=== PATIENT | female | born 1965 | race Caucasian/White ===

== ENCOUNTER 2024-09-02 16:11 | Emergency (ER) | payer OTHER ==
--- OUTSIDE RECORDS SUMMARY | 2024-09-02 16:15 | XMS REPORT | Continuity of Care Document ---
Author Name Unknown Address [address] [facility] [address] [place] [address] [facility] Address [address] [facility] [address] [place] [address] Care Team Providers Care Real Estate Director Name Role Phone Lázaro Wetzel MD Primary Care Physician Fifi Bailey Attending Clinician Unavailable JENNIFER BURNS Attending Clinician Unavailab RANDA Perez Attending Clinician Unavailabl Mildred Echeverria APRN-MANDO Attending Clinician Nanette MELINDA Pearson Attending Clinician Unavailable [id number] Attending Clinician Unavailable ARIEL_GCBZW_Dino_S Attending Clinician UnavailVALENTINE Morgan Attending Clinician Unava ilable Barak Attending Clinician Unavailab le [id number] Attending Clinician Unavailable [id number] Attending Clinician Unavailable JAY JAY PLEITEZ Attending Clinician Unavailabl e Doctor Unassigned, Irene Attending Clinician U navailable FARHAT ZAMARRIPA Attending Clinician Unavailable Farhat Zamarripa MD Attending Clinician Lab, Adc Fam Pob I Attending Clinician Unavailab Bhatia SOFT SUGAR SUPERVISOR, Zoey Attending Clinician [phone] ZOEY ATWOOD Attending Clinician Unavailable Mildred Rodarte Admitting Clinician Nanette vailable ARIEL_GCBZW_Dino_Sae Admitting Clinician Unavaila lamin SCHUMACHER_Allen_Marcela_ Admitting Clinician Unavailab FARHAT Zheng Admitting Clinician Unavailable Payers Payer Name Policy Type Policy Number Effective Date Expirati on Date Source [employer]/PPO 2 [id number] 00:00:00 [employer] - [employer]ET[employer] (POS II) [id number] 2022 00:00:00 [employer] [place] OUT [place] [id number] 2018 00:00:00 Problems Condition Name Condition Details Condition Category Status Onset Date Resolution Date Last Treatment Date Treating Clinician Comments Source Elevated partial thrombopla stin time (PTT) Elevated partial thrombopla stin time (PTT) Disease Active 8-26 00:00: 00 Tasha watts Atrophy of vagina Atrophy of Vagina Problem Active - 00:00: 00 [facility] 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 Disease Active -16 00:00: 00 Tasha watts Encounter for screening mammogram for breast cancer Encounter for screening mammogram for breast cancer Disease Active 10-12 00:00: 00 Tasha watts Class 1 obesity due to excess calories without serious comorbidit y with body mass index (BMI) of 32.0 to 32.9 in adult Class 1 obesity due to excess calories without serious comorbidit y with body mass index (BMI) of 32.0 to 32.9 in adult Disease Active 10-12 00:00: 00 Tasha watts Osteopenia Osteopenia Disease Active 2024-0 6-17 00:00: 00 Tasha Jcybold - Externa l Fatigue Fatigue Disease Active 617 00:00: 00 Tasha Pazold - Externa l Clostridiu m difficile diarrhea Clostridiu m difficile diarrhea Disease Active 17 00:00: 00 Tasha Pazold - Externa l Herpes simplex Herpes Simplex Problem Active 08-12 00:00: 00 [facility] Disorder of bone Disorder of Bone Problem Active 10-18 00:00: 00 [facility] Screening mammograph y Screening Mammograph y Problem Active 10-18 00:00: 00 [facility] Screening for malignant neoplasm of colon Screening for Malignant Neoplasm of Colon Problem Active 10-18 00:00: 00 [facility] 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 Lumbosacra l Spondylosi s with Radiculopa thy Problem Active 2019-04 00:00: 00 [facility] Urgent desire to urinate Urgent Desire to Urinate Problem Active 08-11 00:00: 00 [facility] Gynecologi danae examinatio n abnormal Gynecologi danae Examinatio n Abnormal Problem Active 16 00:00: 00 [facility] Herpesviru s infection Herpesviru s Infection Problem Active 16 00:00: 00 [facility] Atrophic vaginitis Atrophic Vaginitis Problem Active 16 00:00: 00 [facility] 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 2015-04 00:00: 00 [facility] Disorder of connective tissue Disorder of Connective Tissue Problem Active 2015-04 0 00:00: 00 [facility] [id number] Positive NELLA (antinucle ar antibody) Problem [facility] Mixed anxiety and depressive disorder Depression with anxiety Problem [facility] Lymphadeno suman Lymphadeno suman Problem [facility] Obesity Obesity Problem [facility] Snoring Snoring Problem [facility] Seasonal allergic rhinitis Seasonal allergic rhinitis Problem [facility] Myalgia Myalgia Problem [facility] Menopausal and postmenopa usal disorders Menopausal and postmenopa usal disorder Problem [facility] [id number] Primary osteoarthr itis of first carpometac arpal joint of left hand Problem [facility] Prediabete s Pre-diabet es Problem [facility] [id number] Pain, joint, hand, left Problem [facility] Hyperlipid emia Hyperlipid emia Problem [facility] [id number] Common cold virus Problem [facility] [id number] Herpes simplex vulvovagin itis Problem [facility] [id number] Rheumatoid arthritis involving multiple sites, unspecifie d rheumatoid factor presence Problem [facility] [id number] Hypogammag lobulinemi a Problem [facility] [id number] Pure hyperchole sterolemia Problem [facility] No known active problems No known active problems Disease Tasha Tobias Allergies, Adverse Reactions, Alerts Allergy Name Allergy Type Status Severity Reaction(s) Onset Date Inactive Date Treating Clinician Comments Source Sulfa Drugs Propensi ty to adverse reaction s Active Hives 05-16 00:00: 00 Tasha Tobias SULFA (SULFONA MIDE ANTIBIOT ICS) Drug Class Active Med Hives 05-16 00:00: 00 [facility] Sulfa (Sulfona mide Antibiot ics) Propensi ty to adverse reaction s Active Hives 05-16 00:00: 00 [facility] Sulfa (Sulfona mide Antibiot ics) Propensi ty to adverse reaction s Active Hives 05-16 00:00: 00 [facility] Meloxica m Propensi ty to adverse reaction s Active Itching 09-01 00:00: 00 Tasha Tobias - Externa l Meloxica m Propensi ty to adverse reaction s Active Itching 09-01 00:00: 00 Tasha Tobias SULFUR SOAP Allergy to substanc e Active Hives [facility] 0 Drug allergy Active hives [facility] NO KNOWN ALLERGIE S Drug Class Active [facility] Social History Social Habit Start Date Stop Date Quantity Comments Source Exposure to SARS-CoV-2 (event) Not sure [facility] Sex Assigned At [facility] ASSERTION Not Tasha Tobias - External Sexual orientation Gia akhtar Jatinder - External History of Social function 2022-07-17 00:00:00 2022-07-17 00:00:00 Tasha Tobias - External Sex 2021-08-01 13:15:37 2021-08-01 13:15:37 Female (finding) Tasha Tobias - External History of tobacco use 2016-04-28 00:00:00 Cigarette Smoker Tasha Tobias - External Smoking Status Start Date Stop Date Source Never Smoker [facility] Tobacco smoking consumption unknown [facility] Ex-smoker 2023-09-12 00:00:00 2023-09-12 00:00:00 Tasha Tobias - External Medications Ordered Medication Name Filled Medication Name Start Date Stop Date Current Medication? Ordering Clinician Indication Dosage Frequency Signature (SIG) Comments Components Source Cyanocobala min (Vitamin B-12) 100 MCG oral Tablet 08-18 09:01: 19 08-18 00:00 :00 No 100ug QD Take 1 tablet (100 mcg total) by mouth daily. Tasha watts Benzonatate (Tessalon Perles) 100 MG oral Capsule 08-18 00:00: 00 Yes [id number] 100mg Q.[id number] 3D Take 1 capsule (100 mg total) by mouth 3 times daily as needed for cough. Tasha watts Azithromyci n 250 MG oral Tablet 08-18 00:00: 00 08-24 04:59 :00 Yes [id number] Take 2 tablets by mouth on day 1 then 1 tablet by mouth daily for 4 days thereafter .. Tasha watts Paroxetine HCl 10 MG oral Tablet 2023-04 00:00: 08-18 00:00 :00 No [id number] 10mg Take 1 tablet (10 mg total) by mouth every morning. Tasha watts Paroxetine HCl 10 MG oral Tablet 12-15 00:00: 00 Yes [id number] 10mg Take 1 tablet (10 mg total) by mouth every morning. Tasha watts Probiotic Product (PROBIOTIC- 10 OR) 11-10 08:57: 46 Yes Probiotic Tasha Jatinder Montalvo l Cyanocobala min (Vitamin B-12) 100 MCG oral Tablet 11-10 08:57: 46 Yes 100ug QD Take 1 tablet (100 mcg total) by mouth daily. Tasha watts Valacyclovi r HCl 500 MG oral Tablet 11-10 08:57: 46 Yes 500mg Q.5D Take 1 tablet (500 mg total) by mouth 2 times daily. Tasha watts Probiotic Product (PROBIOTIC- 10 OR) 10-12 08:52: 59 Yes Probiotic Tasha Jatinder watts Cyanocobala min (Vitamin B-12) 100 MCG oral Tablet 10-12 08:52: 59 Yes 100ug Take 1 tablet (100 mcg total) by mouth daily. Tasha watts Valacyclovi r HCl 500 MG oral Tablet 10-12 08:52: 59 Yes 500mg Take 1 tablet (500 mg total) by mouth 2 times daily. Tasha watts Paroxetine HCl 10 MG oral Tablet 10-12 00:00: 00 Yes [id number] 10mg Take 1 tablet (10 mg total) by mouth every morning. Tasha watts Valacyclovi r HCl 500 MG oral Tablet 09-11 08:05: 46 Yes 500mg Take 1 tablet (500 mg total) by mouth 2 times daily. Tasha watts Loperamide HCl (IMODIUM A-D) 2 MG oral Tablet 09-11 00:00: 00 Yes [id number] 02 2mg Q.25D Take 1 tablet (2 mg total) by mouth 4 times daily as needed for diarrhea. Tasha watts Paroxetine HCl 20 MG oral Tablet 09-11 00:00: 00 10-12 00:00 :00 No [id number] 20mg Take 1 tablet (20 mg total) by mouth every morning. Tasha watts Cholecalcif erendira (D3) 25 MCG (1000 UT) oral Capsule 2022-04 00:00: 00 Yes Tasha watts Red Yeast Rice 600 MG oral Tablet 07-17 13:04: 12 07-17 00:00 :00 No by other route Tasha watts Hydroxychlo roquine Sulfate 200 MG oral Tablet 07-17 13:04: 06 07-17 00:00 :00 No 1{tbl} Take 1 tablet by mouth in the morning and 1 tablet in the evening. Tasha watts Fexofenadin e (FABRICE) 180 MG oral Tablet 07-17 13:03: 56 07-17 00:00 :00 No Tasha watts Bupropion HCL XL 300 MG OR TB24 07-17 13:03: 44 07-17 00:00 :00 No 1{tbl} 1 tablet by other route every 24 hours Tasha watts Acyclovir 800 MG oral Tablet 07-17 13:03: 32 07-17 00:00 :00 No 1{tbl} 1 tablet by other route Tasha watts Cyanocobala min (Vitamin B-12) 100 MCG oral Tablet 07-17 09:34: 31 Yes 100ug Take 1 tablet (100 mcg total) by mouth daily. Tasha watts Loratadine (CLARITIN) 10 MG oral tablet 07-17 09:34: 17 Yes 1{tbl} Take 1 tablet by mouth Tasha watts Probiotic Product (PROBIOTIC- 10 OR) 07-17 09:34: 17 Yes Probiotic Tasha watts Biotin 5 MG oral Capsule 07-17 09:34: 17 09-11 00:00 :00 No biotin 5 mg capsule Tasha watts Probiotic Product (PROBIOTIC- 10 OR) 07-17 09:34: 10 07-17 00:00 :00 No Probiotic Tasha Jatinder Carlosa mac Azelastine & Fluticasone 137 & 50 MCG/ACT nasal Therapy Pack 07-17 00:00: 00 Yes [id number] 1{spray } Q.5D 1 spray by nasal route 2 times daily Tasha Carlosa mac Azelastine & Fluticasone 137 & 50 MCG/ACT nasal Therapy Pack 07-17 00:00: 00 Yes [id number] 1{spray } 1 spray by nasal route 2 times daily Tasha Carlosa mac Mobic 7.5 MG Mobic 7.5 MG 2021-04 0-03 00:00: 00 02-27 00:00 :00 No 1{table t} QD Mobic 7.5 MG Mobic 7.5 MG Mobic 7.5 MG 2021-04 0-03 00:00: 00 02-27 00:00 :00 No 1{table t} QD Mobic 7.5 MG Mobic 7.5 MG Mobic 7.5 MG 9- 00:00: 00 02-24 00:00 :00 No 1{table t} QD Mobic 7.5 MG Mobic 7.5 MG Mobic 7.5 MG 9- 00:00: 00 02-24 00:00 :00 No 1{table t} QD Mobic 7.5 MG Mobic 7.5 MG Mobic 7.5 MG 9-30 00:00: 00 02-24 00:00 :00 No 1{table t} QD Mobic 7.5 MG Azithromyci n 250 MG oral Tablet 6-16 00:00: 00 07-17 00:00 :00 No [id number] Take 2 tablets by mouth on day 1 then 1 tablet by mouth daily for 4 days thereafter . Tasha watts Fexofenadin e (FABRICE) 180 MG oral Tablet 08-03 09:11: 20 Yes Tasha Tobias Loratadine (CLARITIN) 10 MG oral tablet 08-03 09:11: 20 09-11 00:00 :00 No 1{tbl} Take 1 tablet by mouth Tasha Tobias - Externa l iopamidol (ISOVUE 370-500 mL) injection 100 mL 05-16 13:30: 00 05-16 12:27 :00 No [id number] 100mL 100 mL, Intravenou s, ONCE, 1 dose, On Fri05/16/21 at 0730, Routine [facility] No known medications 05-16 04:38: 57 No [facility] Claritin Claritin Yes Fifi Lea 1 tablet [facility] Red Yeast Rice Red Yeast Rice Yes Fifi Lea as directed [facility] Hydroxychlo roquine Sulfate Hydroxychlo roquine Sulfate Yes Fifi Lea TK 1 T PO BID [facility] Acyclovir Acyclovir Yes Fifi Lea 1 tablet [facility] Valacyclovi r HCl Valacyclovi r HCl Yes Fifi Lea TK 1 T PO QD [facility] Claritin 10 MG Claritin 10 MG No 1{table t} QD Claritin 10 MG Probiotic Probiotic No Probiotic Allergy Relief (diphenhydr amine) 25 mg capsule 1 capsule at bedtime as needed; Once a day; 30 day(s) Allergy Relief (diphenhydr amine) 25 mg capsule 1 capsule at bedtime as needed; Once a day; 30 day(s) No Allergy Relief (diphenhyd ramine) 25 mg capsule 1 capsule at bedtime as needed; Once a day; 30 day(s) [facility] Claritin 10 MG Claritin 10 MG No 1{table t} QD Claritin 10 MG Multivitami n Multivitami n No Multivitam in Hydroxychlo roquine Sulfate 200 MG Hydroxychlo roquine Sulfate 200 MG No Hydroxychl oroquine Sulfate 200 MG azelastine 137 mcg (0.1 %) nasal spray SPRAY 1 SPRAY IN EACH NOSTRIL DAILY azelastine 137 mcg (0.1 %) nasal spray SPRAY 1 SPRAY IN EACH NOSTRIL DAILY No azelastine 137 mcg (0.1 %) nasal spray SPRAY 1 SPRAY IN EACH NOSTRIL DAILY [facility] Claritin 10 MG Claritin 10 MG No 1{table t} QD Claritin 10 MG Hydroxychlo roquine Sulfate 200 MG Hydroxychlo roquine Sulfate 200 MG No Hydroxychl oroquine Sulfate 200 MG Probiotic Probiotic No Probiotic estradiol 0.01% (0.1 mg/gram) vaginal cream Insert 0.5 g 3 times a week by vaginal route at bedtime for 90 days. estradiol 0.01% (0.1 mg/gram) vaginal cream Insert 0.5 g 3 times a week by vaginal route at bedtime for 90 days. No .5g Q56H estradiol 0.01% (0.1 mg/gram) vaginal cream Insert 0.5 g 3 times a week by vaginal route at bedtime for 90 days. [facility] loperamide 2 mg capsule TAKE ONE CAPSULE BY MOUTH FOUR TIMES DAILY NEEDED FOR DIARRHEA loperamide 2 mg capsule TAKE ONE CAPSULE BY MOUTH FOUR TIMES DAILY NEEDED FOR DIARRHEA No loperamide 2 mg capsule TAKE ONE CAPSULE BY MOUTH FOUR TIMES DAILY NEEDED FOR DIARRHEA [facility] Probiotic Probiotic No Probiotic [facility] valacyclovi r 500 mg tablet TAKE 1 TABLET BY MOUTH TWICE DAILY FOR 5 DAYS valacyclovi r 500 mg tablet TAKE 1 TABLET BY MOUTH TWICE DAILY FOR 5 DAYS No valacyclov ir 500 mg tablet TAKE 1 TABLET BY MOUTH TWICE DAILY FOR 5 DAYS [facility] Vitamin D3 Vitamin D3 No Vitamin D3 [facility] amoxicillin 875 mg tablet TAKE 1 TABLET BY MOUTH TWICE DAILY amoxicillin 875 mg tablet TAKE 1 TABLET BY MOUTH TWICE DAILY No amoxicilli n 875 mg tablet TAKE 1 TABLET BY MOUTH TWICE DAILY [facility] Duexis 800 mg-26.6 mg tablet Duexis 800 mg-26.6 mg tablet No Duexis 800 mg-26.6 mg tablet [facility] hydroxychlo roquine 200 mg tablet Take 1 tablet twice a day by oral route for 90 days. hydroxychlo roquine 200 mg tablet Take 1 tablet twice a day by oral route for 90 days. No 1 BID hydroxychl oroquine 200 mg tablet Take 1 tablet twice a day by oral route for 90 days. [facility] oseltamivir 75 mg capsule TAKE 1 CAPSULE BY MOUTH EVERY MORNING AND 1 CAPSULE EVERY EVENING FOR 5 DAYS oseltamivir 75 mg capsule TAKE 1 CAPSULE BY MOUTH EVERY MORNING AND 1 CAPSULE EVERY EVENING FOR 5 DAYS No oseltamivi r 75 mg capsule TAKE 1 CAPSULE BY MOUTH EVERY MORNING AND 1 CAPSULE EVERY EVENING FOR 5 DAYS [facility] valacyclovi r 500 mg tablet valacyclovi r 500 mg tablet No valacyclov ir 500 mg tablet [facility] Immunizations Ordered Immunization Name Filled Immunization Name Date Status Comments Source Influenza Virus Vaccine, age 6 months and up 2022-01-28 00:00:00 Completed [facility] Koch SARS-COV-2 COVID-19 PFIZER VACCINE 2020-08-05 00:00:00 Completed [facility] SARS-COV-2 COVID-19 PFIZER VACCINE 2020-07-15 00:00:00 Completed [facility] Flucelvax - multidose vial Flucelvax - multidose vial 2018-02-10 10:17:00 Completed [facility] [place] Flucelvax - multidose vial Flucelvax - multidose vial 2018-02-10 10:17:00 Completed [facility] Flucelvax - multidose vial Flucelvax - multidose vial 2018-02-10 10:17:00 Completed [facility] Flucelvax - multidose vial Flucelvax - multidose vial 2018-02-10 00:00:00 Completed [facility] Influenza, Injectable, Mdck, Quadrivalent With Preservatie 2018-02-10 00:00:00 Completed Tasha Tobias Influenza, Injectable, Mdck, Quadrivalent With Preservatie 2018-02-10 00:00:00 Miles Koch SARS-COV-2 COVID-19 PFIZER VACCINE Unknown Completed [facility] Influenza, Injectable, Mdck, Quadrivalent With Preservative Unknown Completed Tasha Koch Influenza Virus Vaccine, age 6 months and up Unknown Completed Tasha Koch Influenza, Injectable, Mdck, Quadrivalent With Preservative Unknown Completed Tasha Koch Influenza Virus Vaccine, age 6 months and up Unknown Completed Tasha Seybold - External Influenza, Injectable, Mdck, Quadrivalent With Preservative Unknown Completed Tasha Seybold - External Influenza Virus Vaccine, age 6 months and up Unknown Completed Tasha Seybold - External Influenza, Injectable, Mdck, Quadrivalent With Preservative Unknown Completed Tasha Jcybold - External Influenza Virus Vaccine, age 6 months and up Unknown Completed Tasha Jcybold - External FLUCELVAX TRIVALENT PF Unknown Completed Tasha Seybold - External Influenza, Injectable, Mdck, Quadrivalent With Preservative Unknown Completed Tasha Jcybold - External Influenza Virus Vaccine, age 6 months and up Unknown Completed Tasha Seybold - External Vital Signs Vital Name Observation Time Observation Value Comments S ource Systolic blood pressure 2024-08-18 14:00:00 112 mm[Hg] Tasha Seybo ld - External Diastolic blood pressure 2024-08-18 14:00:00 76 mm[Hg] Tasha Jcybo ld - External Heart rate 2024-08-18 14:00:00 70 /min Isidro y Seybold - External Body temperature 2024-08-18 14:00:00 36.56 Jaimee Tasha Jcybold - External Respiratory rate 2024-08-18 14:00:00 20 /min Tasha Jcybold - External Body height 2024-08-18 14:00:00 157.5 cm Paula mcallister Seybold - External Body weight 2024-08-18 14:00:00 77.565 kg Paula ey Seybold - External BMI 2024-08-18 14:00:00 31.28 kg/m2 Paula mcallister Seybold - External Oxygen saturation in Arterial blood by Pulse oximetry 2024-08-18 14:00:00 98 /min Tasha Pazo ld - External BMI (Body Mass Index) 2023-11-14 00:00:00 31.3 kg/m2 [facility] Body Weight 2023-11-14 00:00:00 171.2 [lb_av] [facility] BP Systolic 2023-11-14 00:00:00 124 mm[Hg] [facility] BP Diastolic 2023-11-14 00:00:00 76 mm[Hg] [facility] Height 2023-11-14 00:00:00 62 [in_i] [facility] Systolic blood pressure 2023-11-11 13:51:00 118 mm[Hg] Tasha Seybo ld - External Diastolic blood pressure 2023-11-11 13:51:00 74 mm[Hg] Tasha Seybo ld - External Heart rate 2023-11-11 13:51:00 74 /min Kelse y Seybold - External Body temperature 2023-11-11 13:51:00 36.67 Jaimee Tasha Seybold - External Respiratory rate 2023-11-11 13:51:00 18 /min Tasha Seybold - External Body height 2023-11-11 13:51:00 157.5 cm Paula ey Seybold - External Body weight 2023-11-11 13:51:00 77.622 kg Paula ey Seybold - External BMI 2023-11-11 13:51:00 31.30 kg/m2 Paula ey Seybold - External Oxygen saturation in Arterial blood by Pulse oximetry 2023-11-11 13:51:00 97 /min Tasha Seybo ld - External Systolic blood pressure 2023-10-13 13:47:00 116 mm[Hg] Tasha Seybo ld - External Diastolic blood pressure 2023-10-13 13:47:00 72 mm[Hg] Tasha Seybo ld - External Heart rate 2023-10-13 13:47:00 69 /min Kelse y Seybold - External Body temperature 2023-10-13 13:47:00 36.56 Jaimee Tasha Seybold - External Respiratory rate 2023-10-13 13:47:00 18 /min Tasha Seybold - External Body height 2023-10-13 13:47:00 157.5 cm Paula ey Seybold - External Body weight 2023-10-13 13:47:00 81.194 kg Paula ey Seybold - External BMI 2023-10-13 13:47:00 32.74 kg/m2 Paula ey Seybold - External Oxygen saturation in Arterial blood by Pulse oximetry 2023-10-13 13:47:00 97 /min Tasha Seybo ld - External Systolic blood pressure 2023-09-12 12:56:00 124 mm[Hg] Tasha Seybo ld - External Diastolic blood pressure 2023-09-12 12:56:00 78 mm[Hg] Tasha Jcybo ld - External Heart rate 2023-09-12 12:56:00 78 /min Kelse y Seybold - External Body temperature 2023-09-12 12:56:00 36.5 Jaimee Tasha Seybold - External Respiratory rate 2023-09-12 12:56:00 18 /min Tasha Seybold - External Body height 2023-09-12 12:56:00 157.5 cm Paula ey Seybold - External Body weight 2023-09-12 12:56:00 79.946 kg Paula ey Seybold - External BMI 2023-09-12 12:56:00 32.24 kg/m2 Paula ey Seybold - External Oxygen saturation in Arterial blood by Pulse oximetry 2023-09-12 12:56:00 98 /min Tasha Jcybo ld - External Systolic blood pressure 2022-07-17 14:28:00 116 mm[Hg] Tasha Seybo ld - External Diastolic blood pressure 2022-07-17 14:28:00 64 mm[Hg] Tasha Seybo ld - External Heart rate 2022-07-17 14:28:00 84 /min Kelse y Seybold - External Body temperature 2022-07-17 14:28:00 36.28 Jaimee Tasha Seybold - External Respiratory rate 2022-07-17 14:28:00 14 /min Tasha Jcybold - External Body height 2022-07-17 14:28:00 157.5 cm Paula ey Seybold - External Body weight 2022-07-17 14:28:00 75.297 kg Paula ey Seybold - External BMI 2022-07-17 14:28:00 30.36 kg/m2 Paula ey Seybold - External BP Diastolic 2022-03-08 00:00:00 91 mm[Hg] [facility] Height 2022-03-08 00:00:00 62 [in_i] Harjeet huynh [facility] BMI (Body Mass Index) 2022-03-08 00:00:00 29.1 kg/m2 [facility] BP Systolic 2022-03-08 00:00:00 141 mm[Hg] German claire [facility] Body Weight 2022-03-08 00:00:00 159.2 [lb_av] Darwin lopez [facility] height 2022-01-25 10:00:00 62 [in_i] Commo n [facility] weight 2022-01-25 10:00:00 157.0 [lb_av] Co mmon [facility] temperature 2022-01-25 10:00:00 96.3 [degF] Com mon [facility] bmi 2022-01-25 10:00:00 28.71 kg/m2 Comm on [facility] blood pressure systolic 2022-01-25 10:00:00 134 mm[Hg] Common [facility] blood pressure diastolic 2022-01-25 10:00:00 80 mm[Hg] Common [facility] Systolic blood pressure 2021-08-03 14:03:00 122 mm[Hg] Tasha Seybo ld Diastolic blood pressure 2021-08-03 14:03:00 76 mm[Hg] Tasha Seybo ld Heart rate 2021-08-03 14:03:00 73 /min Kel y Jatinder Body temperature 2021-08-03 14:03:00 36.5 Jaimee Tasha Seybold Respiratory rate 2021-08-03 14:03:00 14 /min Tasha Pazold Body height 2021-08-03 14:03:00 157.5 cm Paula Tobias Body weight 2021-08-03 14:03:00 73.936 kg Paula esvin Jcybold BMI 2021-08-03 14:03:00 29.81 kg/m2 Paula mcallister Seybold Systolic blood pressure 2021-05-16 13:00:00 128 mm[Hg] [facility] Diastolic blood pressure 2021-05-16 13:00:00 73 mm[Hg] [facility] Heart rate 2021-05-16 13:00:00 69 /min [facility] Respiratory rate 2021-05-16 13:00:00 15 /min [facility] Oxygen saturation in Arterial blood by Pulse oximetry 2021-05-16 13:00:00 100 /min [facility] Body temperature 2021-05-16 10:28:00 36.5 Jaimee [facility] Body height 2021-05-16 10:28:00 157.5 cm [facility] Body weight 2021-05-16 10:28:00 73.936 kg [facility] BMI 2021-05-16 10:28:00 29.81 kg/m2 [facility] Procedures Procedure Date / Time Performed Performing Clinician Source MAMMO, screening, digital, bilateral 2023-11-14 00:00:00 [facility] EKG-12 LEAD 2021-05-16 12:55:12 Farhat Zamarripa [facility] CT CHEST PULMONARY ANGIOGRAM 2021-05-16 12:28:07 Farhat Zamarripa [facility] D-DIMER 2021-05-16 11:11:00 Farhat Zamarripa [facility] LIPASE 2021-05-16 10:39:00 Farhat Zamarripa [facility] MAGNESIUM 2021-05-16 10:39:00 Farhat Zamarripa [facility] TROPONIN I 2021-05-16 10:39:00 Farhat Zamarripa [facility] THYROID STIMULATING HORMONE 2021-05-16 10:39:00 Farhat Zamarripa [facility] COMP. METABOLIC PANEL ([id number]) 2021-05-16 10:39:00 Farhat Zamarripa [facility] CBC WITH DIFF 2021-05-16 10:39:00 [facility]hat [facility] 2021-05-16 10:39:00 Farhat Zamarripa [facility] COVID-19 (ID NOW RAPID TESTING) 2021-05-16 10:39:00 Farhat Zamarripa [facility] NOTICE OF PRIVACY PRACTICES 2021-05-16 10:21:25 Doctor Unassigned, Irene [facility] CONSENT/REFUSAL FOR DIAGNOSIS AND TREATMENT 2021-05-16 10:20:43 Doctor Unassigned, Irene [facility] Endometrial Ablation 2008-04-28 00:00:00 [facility] 1984-01-27 00:00:00 [facility] Planned Activity Planned Date Details Comments Source Diagnostic Test Pending 2022-03-08 00:00:00 erythrocyte sedimentation rate by westergren method [code = erythrocyte sedimentation rate by westergren method] [facility] Diagnostic Test Pending 2022-03-08 00:00:00 C-reactive protein, quantitative [code = C-reactive protein, quantitative] [facility] Diagnostic Test Pending 2022-03-08 00:00:00 NELLA (antinuclear antibodies) panel, serum [code = NELLA (antinuclear antibodies) panel, serum] [facility] Diagnostic Test Pending 2022-03-08 00:00:00 CBC [code = CBC] [facility] Diagnostic Test Pending 2022-03-08 00:00:00 CMP, serum or plasma [code = CMP, serum or plasma] [facility] Encounters Start Date/Time End Date/Time Encounter Type Admission Type Attending [facility] Care Facility Care Department Encounter ID Source 2022-01-28 13:54:00 [facility] [id number] [facility] [place] 2022-01-25 09:59:00 Outpatient LeaFifi childs [facility] [id number] [facility] [place] 2022-01-21 10:08:00 Outpatient LeoFifi [facility] [id number] [facility] [place] 2021-05-23 11:13:56 [facility] [id number] [facility] [place] 2024-10-13 08:00:00 2024-10-13 08:00:00 Outpatient JENNIFER BURNS [id number] Tasha Tobias 2024-08-18 09:00:00 2024-08-18 09:00:00 Outpatient JENNIFER BURNS [id number] Tasha Pazold 2024-07-26 00:00:00 2024-07-26 00:00:00 Outpatient JENNIFER BURNS TASHA [id number] Tasha [facility] 2024-04-07 13:45:00 2024-04-07 13:45:00 Outpatient RANDA SINGH [facility]HA [facility] [id number] [facility] 2024-03-17 00:00:00 2024-03-17 00:00:00 Outpatient JENNIFER BURNS TASHA ALVARADO [id number] Tasha [facility] 2024-01-19 00:00:00 2024-01-19 00:00:00 Outpatient JENNIFER BURNS TASHA ALVARADO [id number] Tasha [facility] 2024-01-15 08:00:00 2024-01-15 08:00:00 Outpatient Mildred Pitts [facility] [id number] [address] [place] [address] 2023-12-22 11:00:00 2023-12-22 11:00:00 Outpatient MELINDA GREEN TASHA ALVARADO [id number] [facility] 2023-12-10 00:00:00 2023-12-10 00:00:00 Outpatient JENNIFER BURNS TASHA ALVARADO [id number] Tasha [facility] 2023-11-29 00:00:00 2023-11-29 00:00:00 Outpatient JENNIFER BURNS TASHA ALVARADO [id number] Tasha [facility] 2023-11-28 08:15:00 2023-11-28 08:15:00 Outpatient LAB90 TASHA ALVARADO [id number] [facility] 2023-11-27 00:00:00 2023-11-27 00:00:00 Outpatient JENNIFER BURNS TASHA ALVARADO [id number] Atsha [facility] 2023-11-17 00:00:00 2023-11-17 00:00:00 Outpatient JENNIFER BURNS TASHA ALVARADO [id number] [facility] 2023-11-14 00:00:00 2023-11-14 00:00:00 YAMIL ChristopherP: [address], [place] [address], [place] [address] , Ph. [facility] GC_GCBZW_La juan f Murillo* [id number] [facility] 2023-11-11 09:45:00 2023-11-11 09:45:00 Outpatient LAB90 TASHA ALVARADO [id number] Tasha [facility] 2023-11-11 09:00:00 2023-11-11 09:00:00 Outpatient GRANT JENNIFER ALVARADO [id number] Tasha [facility] 2023-10-13 09:45:00 2023-10-13 09:45:00 Outpatient LAB90 TASHA ALVARADO [id number] Tasha [facility] 2023-10-13 09:00:00 2023-10-13 09:00:00 Outpatient GRANT JENNIFER ALVARADO [id number] [facility] 2023-09-15 11:40:00 2023-09-15 11:40:00 Outpatient LAB90 TASHA ALVARADO [id number] [facility] 2023-09-15 09:10:00 2023-09-15 09:10:00 Outpatient LAB90 TASHA ALVARADO [id number] [facility] 2023-09-12 08:50:00 2023-09-12 08:50:00 Outpatient LAB90 TASHA ALVARADO [id number] [facility] 2023-09-12 08:00:00 2023-09-12 08:00:00 Outpatient GRANT JENNIFER ALVARADO [id number] [facility] 2023-09-09 13:30:00 2023-09-09 13:30:00 Outpatient GRANT JENNIFER ALVARADO [id number] [facility] 2023-01-14 00:00:00 2023-01-14 00:00:00 Outpatient GC_GCBZW_Natanael allen_S [facility] [id number] [facility] 2023-01-09 05:38:00 2023-01-09 05:38:00 Outpatient Mildred Pitts [facility] [id number] [address] [place] [address] 2022-07-24 00:00:00 2022-07-24 00:00:00 Outpatient VALENTINE SYLVESTERROLF ALVARADO [id number] Tasha Jcchester 2022-07-17 10:20:00 2022-07-17 10:20:00 Outpatient LAB90 TASHA TASHA [id number] [facility] 2022-07-17 09:30:00 2022-07-17 09:30:00 Outpatient VALENTINE SYLVESTER TASHA ALVARADO [id number] Tasha [facility] 2022-04-22 00:00:00 2022-04-22 00:00:00 Outpatient FOG_Allen_H suzanna_ AO AO [id number] [facility] 2022-03-31 00:00:00 2022-03-31 00:00:00 Outpatient FOG_Allen_H suzanna_ AOSM AO [id number] [facility] 2022-03-08 00:00:00 2022-03-08 00:00:00 Outpatient FOG_Allen_H suzanna_ AOSM AO [id number] [facility] 2022-03-08 00:00:00 2022-03-08 00:00:00 Marcela Villa MD: [address] [place] [address] , Ph. [phone] [facility] [place] [facility] [place] [facility] F[facility] [id number] [facility] 2022-01-28 00:00:00 2022-01-28 00:00:00 (TEL) [facility] [id number] [facility] 2022-01-25 00:00:00 2022-01-25 00:00:00 OFFICE VISIT EST PT LEVEL 3 [facility] [id number] [facility] 2021-10-11 00:00:00 2021-10-11 00:00:00 Outpatient AIRAM SYLVESTERBRENDEN ALVARADO [id number] Tasha [facility] 2021-10-11 00:00:00 2021-10-11 00:00:00 Outpatient VALENTINE SYLVESTER TASHA ALVARADO [id number] [facility] 2021-10-04 10:15:00 2021-10-04 10:15:00 Outpatient ZJR87-[id number] TASHA TASHA [id number] Tasha Tobias 2021-10-04 09:45:00 2021-10-04 09:45:00 Outpatient NT90 TASHA ALVARADO [id number] Tasha Jcchester 2021-10-04 09:40:00 2021-10-04 09:40:00 Outpatient LAB90 TASHA ALVARADO [id number] Tasha Tobias 2021-10-04 09:30:00 2021-10-04 09:30:00 Outpatient JAY JAY PLEITEZ TASHA ALVARADO [id number] [facility] 2021-10-04 09:00:00 2021-10-04 09:00:00 Telemedici ne NGA VALENTINE Murillo [id number] Tasha [facility] 2021-10-04 00:00:00 2021-10-04 00:00:00 Outpatient AIRAM SYLVESTERBRENDEN ALVARADO [id number] Tasha [facility] 2021-09-25 00:00:00 2021-09-25 00:00:00 Outpatient AIRAM SYLVESTERBRENDEN ALVARADO [id number] Tasha [facility] 2021-09-23 00:00:00 2021-09-23 00:00:00 Outpatient Debbie_Jocelyne Araya AOSM AOSM [id number] [facility] 2021-09-18 00:00:00 2021-09-18 00:00:00 Outpatient NGAAIRAM GIBBONSBRENDEN ALVARADO [id number] Tasha [facility] 2021-08-03 09:00:00 2021-08-03 09:00:00 Office Visit NGAAIRAM GIBBONSBRENDEN Murillo [id number] Tasha Tobias 2021-08-02 09:30:00 2021-08-02 09:30:00 Outpatient VALENTINE SYLVESTER [id number] Tasha Tobias 2021-06-18 00:00:00 2021-06-18 00:00:00 Patient Secure Msg Doctor Unassigned, Irene [facility] 1..840.114 [id number] [facility] 2021-05-16 04:27:00 2021-05-16 07:05:00 Emergency X FARHAT ZAMARRIPA [facility] ERT [id number] [facility] 2021-05-16 04:27:00 2021-05-16 07:05:00 Emergency Farhat Zamarripa S [facility] ..840.114 [id number] [facility] 2020-08-05 13:55:00 2020-08-05 13:55:00 Outpatient [facility] [id number] [facility] 2020-07-15 13:50:00 2020-07-15 13:50:00 Outpatient [facility] [id number] [facility] 2020-02-29 15:19:35 2020-02-29 15:39:35 Laboratory Only Lab, Adc Fam Pob I Zoey Atwood [facility] Office [facility] ..840.114 [id number] [id number] [facility] 2020-02-29 15:20:00 2020-02-29 15:20:00 Outpatient ZOEY PALMA [facility] [id number] [facility] 2019-09-02 10:20:00 2019-09-02 10:20:00 Out[facility] [id number] [facility] 2018-08-11 08:00:00 2018-08-11 08:00:00 Outpatient [facility] [id number] [facility] [place] 2018-08-07 14:42:00 2018-08-07 14:42:00 Outpatient [facility] [id number] [facility] [place] 2018-07-09 13:15:00 2018-07-09 13:15:00 Outpatient [facility] [id number] [facility] [place] 2018-02-10 09:30:00 2018-02-10 09:30:00 Outpatient [facility] [id number] [facility] [place] Results Test Description Test Time Test Comments Results Result Co mments Source [id number] 11:29:03* Test Item Value Reference Range Interpretation Comments D-DIMER (test code = 1275256449) See_Comment H [Automated message] The system which generated this result transmitted reference range: <0.41 ?g/mL (FEU). The reference range was not used to interpret this result as normal/abnormal. HUMERA (test code = HUMERA) This test may be used in conjunction with a clinical pretest probability (PTP) assessment model to exclude venous thromboembolism (VTE) in patients suspected of deep venous thrombosis (DVT) and pulmonary embolism (PE) A D-Dimer value less than 0.50 ?g/ml (FEU) has a negative predicative value of 96 to 100% (95% CI)and 97 to 100% (95% CI) as an aid in the diagnosis of deep vein thrombosis (DVT) and pulmonary embolism when there is low or moderate pretest probability of PE or DVT. D-Dimer values are expressed in initial fibrinogen equivalent units (FEU)" The assay results should be used with other information, including the clinical context, in forming a diagnosis. Lab Interpretation (test code = 78356-1) [facility] [id number] 11:16:43* Test Item Value Reference Range Interpretation Comments TROPONIN I (test code = 9409698842) 0.005 ng/mL See_Comment [Automated message] The system which generated this result transmitted reference range: <=0.034. The reference range was not used to interpret this result as normal/abnormal. HUMERA (test code = HUMERA) Reference (Normal) Range (defined by the 99th percentile reference limit): <= 0.034 ng/mL Note: Cardiac troponin begins to rise 3-4 hours after the onset of ischemia. Repeat in 4-6 hours if the sample was drawn within 3-4 hours of the onset of the symptom and found normal. Diagnosis of myocardial injury is made with acute changes in cTn concentrations with at least one serial sample above the 99th percentile upper reference limit (URL), taken together with the patient's clinical presentation. Biotin has been reported to cause a negative bias, interpret results relative to patient's use of biotin. Lab Interpretation (test code = 76348-2) [facility] 11:06:04* Test Item Value Reference Range Interpretation Comme nts MAGNESIUM (test code = 6508847054) 1.9 mg/dL 1.7-2.4 Lab Interpretation (test cod e = 15111-0) [facility] (54577)2021-05-16 11:06:03* Test Item Value Reference Range Interpretation Comme nts NA (test code = 3076947774) 137 mmol/L 135-145 K (test code = 7403287776) 4.0 mmol/L 3.5-5.0 CL (test code = 7156980509) 104 mmol/L 98-108 CO2 TOTAL (test code = 0141118526) 28 mmol/L 23-31 AGAP (test code = 9111699342) 2-16 BUN (test code = 7431347137) 18 mg/dL 7-23 GLUCOSE (test code = 4375200363) 97 mg/dL 70-110 CREATININE (test code = 5169976070) 0.68 mg/dL 0.50-1.04 TOTAL BILI (test code = 1200582301) 0.5 mg/dL 0.1-1.1 CALCIUM (test code = 2603862712) 9.4 mg/dL 8.6-10.6 T PROTEIN (test code = 2544509390) 6.3 g/dL 6.3-8.2 ALBUMIN (test code = 8206007034) 4.0 g/dL 3.5-5.0 ALK PHOS (test code = 1227836323) 80 U/L 34-122 ALTv (test code = 1742-6) 42 U/L 5-35 H AST(SGOT) (test code = 8235654533) 43 U/L 13-40 H eGFR (test code = 1728256737) mL/min/1.73m2 HUMERA (test code = HUMERA) Association of Glomerular Filtration Rate (GFR) and Staging of Kidney Disease* + --+ --+ ------+| GFR (mL/min/1.73 m2) ?| With Kidney Damage ?| ?Without Kidney Damage+ --------+ --------+ +| ?>90 ?| ?Stage one ?| ? Normal ?+ ---+ ---+ -------+| ?60-89 ?| ?Stage two ?| ? Decreased GFR ? + --+ --+ ------+| ?30-59 ?| ?Stage three ?| ? Stage three ? + --+ --+ ------+| ?15-29 ?| ?Stage four ? | ? Stage four ?+ ---+ ---+ -------+| ?<15 (or dialysis) ? ?| ?Stage five ? | ? Stage five ?+ ---+ ---+ -------+ *Each stage assumes the associated GFR level has been in effect for at least three months. ?Stages 1 to 5, with or without kidney disease, indicate chronic kidney disease. Notes: Determination of stages one and two (with eGFR >59mL/min/1.73 m2) requires estimation of kidney damage for at least three months as defined by structural or functional abnormalities of the kidney, manifested by either:Pathological abnormalities or Markers of kidney damage (including abnormalities in the composition of the blood or urine or abnormalities in imaging tests). Lab Interpretation (test code = 92909-9) [facility]normal [facility], [id number] 11:05:43* Test Item Value Reference Range Interpretation Comme nts LIPASE (test code = 7791677801) 134 U/L 0-220 Lab Interpretation (test cod e = 69541-1) Normal [facility] WITH [id number] 10:55:18* Test Item Value Reference Range Interpretation Comme nts WBC (test code = 6690-2) See_Comment [Automated messa ge] The system which generated this result transmitted reference range: 4.30 - 11.10 10*3/?L. The reference range was not used to interpret this result as normal/abnormal. RBC (test code = 789-8) See_Comment [Automated messa ge] The system which generated this result transmitted reference range: 3.93 - 5.25 10*6/?L. The reference range was not used to interpret this result as normal/abnormal. HGB (test code = 718-7) 12.8 g/dL 11.6-15.0 HCT (test code = 4544-3) 39.6 % 35.7-45.2 MCV (test code = 787-2) 93.0 fL 80.6-95.5 MCH (test code = 785-6) 30.0 pg 25.9-32.8 MCHC (test code = 786-4) 32.3 g/dL 31.6-35.1 RDW-SD (test code = 98343-7) 41.1 fL 39.0-49.9 RDW-CV (test code = 788-0) 12.1 % 12.0-15.5 PLT (test code = 777-3) See_Comment [Automated messa ge] The system which generated this result transmitted reference range: 166 - 358 10*3/?L. The reference range was not used to interpret this result as normal/abnormal. MPV (test code = 56976-7) 9.4 fL 9.5-12.9 L NRBC/100 WBC (test code = 8138269786) See_Comment [Automated Majitek ssage] The system which generated this result transmitted reference range: 0.0 - 10.0 /100 WBCs. The reference range was not used to interpret this result as normal/abnormal. NRBC x10^3 (test code = 0996136579) <0.01 See_Comment [Automated messa ge] The system which generated this result transmitted reference range: 10*3/?L. The reference range was not used to interpret this result as normal/abnormal. GRAN MAT (NEUT) % (test code = 770-8) 38.7 % IMM GRAN % (test code = 8653625658) 0.20 % LYMPH % (test code = 736-9) 48.2 % MONO % (test code = 5905-5) 9.5 % EOS % (test code = 713-8) 2.5 % BASO % (test code = 706-2) 0.9 % GRAN MAT x10^3(ANC) (test code = 7545049356) 2.15 10*3/uL 1.88-7.09 IMM GRAN x10^3 (test code = 9287605806) <0.03 0.00-0.06 LYMPH x10^3 (test code = 731-0) 2.68 10*3/uL 1.32-3.29 MONO x10^3 (test code = 742-7) 0.53 10*3/uL 0.33-0.92 EOS x10^3 (test code = 711-2) 0.14 10*3/uL 0.03-0.39 BASO x10^3 (test code = 704-7) 0.05 10*3/uL 0.01-0.07 Lab Interpretation (test code = 04884-6) Abnormal [facility] Notes Date/Time Note Provider Source 2023-11-11 08:57:50 Chief Complaint Patient presents with Follow-up 1 month follow up for depression Angle Dsouza LVN [facility] 2023-10-13 08:53:01 Chief Complaint Patient presents with Physical Fasting for labs Angle Dsouza [facility] 2023-09-12 08:05:48 Chief Complaint Patient presents with Physical Fasting for labs. Wants to be tested for C-diff. Angle Dsouza LVN [facility]
[2024-09-02 17:05] LABS: Absolute Basophils 0.1 K/uL (0-0.5); Absolute Eosinophils 0.1 K/uL (0-0.5); Absolute Lymphocytes (CBC) 3.2 K/uL (0.7-4.9); Absolute Monocytes 0.6 K/uL (0.1-1.3); Absolute Neutrophil 2.8 K/uL (1.8-8.0); Basophils % 0.9 % (0-1.3); Hematocrit 39.8 % (36.0-45.0); Hemoglobin 13.9 g/dL (12.0-15.0); Lymphocytes % 47.3 % (15.3-44.8); MCH 31.8 pg (27.0-35.0); MCHC 34.9 g/dL (32.0-36.0); MCV 91.1 fL (80-100); MPV 8.1 fL (7.6-11.3); Monocytes % 8.4 % (3.3-12.3); Neutrophils % 42.4 % (41.7-73.7); Nucleated Red Blood Cells % 0.2 % (0-0); Platelets 283 thou/uL (152-406); RBC Red Blood Cell Count 4.37 M/uL (3.86-4.86)
[2024-09-02 17:13] LABS: PT Prothrombin Time 10.4 SECONDS (10-13.0); PTT, Activated Partial Thromb 35.8 SECONDS (27.2-37.4); Protime INR 0.91
[2024-09-02 17:24] LABS: Anion Gap 6.7 mEq/L (5.0-15.0); Potassium 3.7 mEq/L (3.5-5.1); Troponin High Sensitivity 4.5 pg/mL (<58.9)
--- NOTE | 2024-09-02 17:43 | RAD REPORT ---
EXAMINATION: ONE VIEW CHEST XR CLINICAL INDICATION: Female, 59 years old.,generalized weakness TECHNIQUE: Frontal chest projection is submitted. Examination is limited by patient positioning and t echnique. COMPARISON: No prior exam. FINDINGS: The lungs are well inflated and clear. No pneumothorax or sizable effusion. The heart is normal in s ize. Mediastinal contours are unremarkable. IMPRESSION: No acute intrathoracic abnormalities.
--- NOTE | 2024-09-02 18:02 | RAD REPORT ---
EXAM: CT Head Brain Wo Cont HISTORY: headache, vision changes COMPARISON: None TECHNIQUE: Multiple contiguous axial images were obtained for a CT of the brain without contrast. Sag ittal and coronal reformats were performed. One or more of the following dose reduction techniques were used: Automated exposure control, adjus tment of the mA and kV according to patient size, and iterative reconstruction. Unless otherwise specified, incidental findings do not require dedicated imaging follow-up. FINDINGS: No evidence of hydrocephalus, intracranial hemorrhage, or extra-axial fluid collection. Partially empty and expanded sella, a nonspecific finding. The brain is normal in morphology. The calvarium is intact. The visualized paranasal sinuses and mastoid air cells are essentially clear . IMPRESSION: No evidence of acute intracranial abnormality. Partially empty and expanded sella. Please correlate clinically, if there is concern for idiopathic i ntracranial hypertension, additional evaluation by MRI with or without MR venogram may be warranted.
--- NOTE | 2024-09-02 18:08 | EDPHYS ---
Physician Documentation [facility] Name: Keyla Cortez Age: 59 yrs Sex: Female : 1965 Arrival Date: 09/02/2024 Time: 16:11 Bed 5 Private MD: ED Physician Boris Reece HPI: 09/02 16:32 This 59 yrs old Female presents to ER via Ambulatory with complaints of Blurred Vision, ms3 General Weakness, Headache. 16:32 59-year-old female with no past medical history presents to the emergency department ms3 for waking with a headache and generalized weakness this morning. Patient states around lunch she developed blurry vision with nausea. She notes her headache has resolved. She denies any alleviating or inciting factors.. Historical: - Allergies: 16:21 Sulfa (Sulfonamide Antibiotics); iw - Home Meds: 16:21 None [Active]; iw - PMHx: 16:21 None; iw - PSHx: 16:22 section; Tonsillectomy; iw - Immunization history:: Adult Immunizations up to date. - Infectious Disease History:: Denies. - Social history:: Smoking status: Patient/guardian denies using tobacco, the patient reports quitting approximately 10 years ago. ROS: 16:32 Cardiovascular: Negative for chest pain, and palpitations. Respiratory: Negative for ms3 shortness of breath, cough, wheezing, and pleuritic chest pain, Abdomen/GI: Negative for abdominal pain, nausea, vomiting, diarrhea, and constipation, MS/Extremity: Negative for injury and deformity, 16:32 Constitutional: Positive for Generalized weakness, 16:32 Neuro: Positive for headache, Exam: 16:32 Constitutional: This is a well developed, well nourished patient who is awake, alert, ms3 and in no acute distress. Cardiovascular: Regular rate and rhythm with a normal S1 and S2. No gallops, murmurs, or rubs. Normal PMI, no JVD. No pulse deficits. Respiratory: Lungs have equal breath sounds bilaterally, clear to auscultation and percussion. No rales, rhonchi or wheezes noted. No increased work of breathing, no retractions or nasal flaring. Abdomen/GI: Soft, non-tender, with normal bowel sounds. No distension or tympany. No guarding or rebound. No evidence of tenderness throughout. Skin: Warm, dry with normal turgor. Normal color with no rashes, no lesions, and no evidence of cellulitis. MS/ Extremity: Pulses equal, no cyanosis. Neurovascular intact. Full, normal range of motion. 17:22 ECG was reviewed by the Attending Physician. ms3 Vital Signs: 16:19 BP 139 / 85; Pulse 84; Resp 16; Pulse Ox 99% on R/A; Weight 81.65 kg; Height 5 ft. 2 iw in. ; 16:19 Body Mass Index 32.92 (81.65 kg, 157.48 cm) iw NIH Stroke Scale Scores: 16:32 NIHSS Score: 0 ms3 MDM: 16:30 Medical Screening Exam initiated ms3 16:32 Differential diagnosis: intracerebral hemorrhage, migraine, subarachnoid bleed, tension ms3 headache. 18:01 Transition of care: After a detail discussion of the patient's case, care is ms3 transferred to Boris Reece MD. 05 16:31 Order name: Basic Metabolic Panel; Complete Time: 17:25 ms3 09/02 16:31 Order name: CBC with Diff; Complete Time: 17:19 ms3 09/02 16:31 Order name: High Sensitivity Troponin; Complete Time: 17:25 ms3 09/02 16:31 Order name: Protime (+inr); Complete Time: 17:20 ms3 09/02 16:31 Order name: Ptt, Activated; Complete Time: 17:20 ms3 09/02 16:31 Order name: CT Head Brain wo Cont; Complete Time: 18:07 ms3 09/02 16:31 Order name: CXR XRAY; Complete Time: 17:48 ms3 09/02 16:31 Order name: Accucheck; Complete Time: 16:45 ms3 09/02 16:31 Order name: Cardiac monitoring; Complete Time: 16:45 ms3 09/02 16:31 Order name: EKG - Nurse/Tech; Complete Time: 17:05 ms3 09/02 16:31 Order name: IV Saline Lock; Complete Time: 16:45 ms3 09/02 16:31 Order name: Labs collected and sent; Complete Time: 16:45 ms3 09/02 16:31 Order name: NPO; Complete Time: 16:45 ms3 09/02 16:31 Order name: O2 Per Protocol; Complete Time: 16:45 ms3 09/02 16:31 Order name: O2 Sat Monitoring; Complete Time: 16:45 ms3 05 16:31 Order name: Stroke Swallow Screen; Complete Time: 16:45 ms3 EC:22 Rate is 76 beats/min. Rhythm is regular. QRS [place] is Normal. [place] interval is normal. QRS ms3 interval is normal. Clinical impression: Normal ECG. Interpreted by me. Reviewed by me. Administered Medications: No medications were administered Disposition Summary: 09/02/24 18:08 Discharge Ordered Notes: Location: Home sp3 Condition: Stable sp3 Diagnosis - Other headache syndrome sp3 Followup: sp3 - With: Private Physician - When: Upon discharge from the Emergency Department - Reason: Continuance of care Discharge Instructions: - Discharge Summary Sheet sp3 - General Headache Without Cause sp3 Forms: - Medication Reconciliation Form sp3 - Antibiotic Education sp3 - Prescription Opioid Use sp3 - Patient Portal Instructions sp3 - Leadership Thank You Letter sp3 NIH Stroke Scale - NIH Stroke Score Date: 09/02/2024 Time: 16:32 Total Score = 0 10. Dysarthria (speech clarity - read or repeat words) - 0(Normal) 11. Extinction and Inattention (visual/tactile/auditory/spatial/personal) - 0(No abnormality) 1a. Level of Consciousness (LOC) - 0(Alert) 1b. Level of Consciousness (LOC) (Month \T\ Age) - 0(Both) 1c. LOC Commands (Open \T\ Closes Eyes/Carpentry Foreman) - 0(Both) 2. Best Gaze (Lateral Gaze Paresis) - 0(Normal) 3. Visual Field Loss - 0(No visual loss) 4. Facial Palsy - 0(Normal) 5a. Left Arm: Motor (10-second hold) - 0(No drift) 5b. Right Arm: Motor (10-second hold) - 0(No drift) 6a. Left Leg: Motor (5-second hold - always test supine) - 0(No drift) 6b. Right Leg: Motor (5-second hold - always test supine) - 0(No drift) 7. Limb Ataxia (finger/nose \T\ heel/lopes - test with eyes open) - 0(Absent) 8. Sensory Loss (pinprick arms/legs/face) - 0(Normal) 9. Best Language: Aphasia (description/naming/reading) - 0(No aphasia) Initials: ms3 Signatures: Dispatcher [employer] EDMS Sabrina Wisdom, TYLER RN Israel Santiago DO DO ms3 Boris Reece MD MD sp3 Corrections: (The following items were deleted from the chart) 16:31 16:31 BASIC METABOLIC PANEL+C.LAB.BRZ ordered. EDMS EDMS 16:31 16:31 CBC+H.LAB.BRZ ordered. EDMS EDMS 16:31 16:31 Troponin High Sensitivity+C.LAB.BRZ ordered. EDMS EDMS 16:31 16:31 PROTIME (+INR)+COAG.LAB.BRZ ordered. EDMS EDMS 16:31 16:31 PTT, ACTIVATED+COAG.LAB.BRZ ordered. EDMS EDMS 16:32 16:32 Head Brain Wo Cont+CT.RAD.BRZ ordered. EDMS EDMS 16:32 16:32 Chest Single View+RAD.RAD.BRZ ordered. EDMS EDMS
--- NOTE | 2024-09-02 18:08 | ER ---
Nurse's Notes [facility] Name: Keyla Cortez Age: 59 yrs Sex: Female : 1965 Arrival Date: 09/02/2024 Time: 16:11 Bed 5 Private MD: Diagnosis: Other headache syndrome Presentation: 09/02 16:19 Chief complaint: Patient states: was coming out of the store , looked down at her watch iw and when she looked up everything was blurry, had a headache earlier today , her vision has improved but still a bit blurry in both eyes, feels light headed and has general weakness. Coronavirus screen: At this time, the client does not indicate any symptoms associated with coronavirus-19. Ebola Screen: No symptoms or risks identified at this time. Initial Sepsis Screen: Does the patient meet any 2 criteria? No. Patient's initial sepsis screen is negative. Does the patient have a suspected source of infection? No. Patient's initial sepsis screen is negative. Risk Assessment: Do you want to hurt yourself or someone else? Patient reports no desire to harm self or others. 16:19 Method Of Arrival: Ambulatory iw 16:19 Acuity: GRACE 3 iw 16:21 Onset of symptoms was September 02, 2024. iw Historical: - Allergies: 16:21 Sulfa (Sulfonamide Antibiotics); iw - Home Meds: 16:21 None [Active]; iw - PMHx: 16:21 None; iw - PSHx: 16:22 section; Tonsillectomy; iw - Immunization history:: Adult Immunizations up to date. - Infectious Disease History:: Denies. - Social history:: Smoking status: Patient/guardian denies using tobacco, the patient reports quitting approximately 10 years ago. Assessment: 16:36 Reassessment: Patient and/or family updated on plan of care and expected duration. Pain ll1 level reassessed. Vital Signs: 16:19 BP 139 / 85; Pulse 84; Resp 16; Pulse Ox 99% on R/A; Weight 81.65 kg; Height 5 ft. 2 iw in. ; 16:19 Body Mass Index 32.92 (81.65 kg, 157.48 cm) iw NIH Stroke Scale Scores: 16:32 NIHSS Score: 0 ms3 ED Course: 16:13 Patient arrived in ED. im 16:20 Triage completed. iw 16:21 Arm band placed on. iw 16:23 Israel Connor DO is Attending Physician. ms3 16:34 Placido Sales, RN is Primary Nurse. bp 16:36 Patient placed in an exam room, on a stretcher. ll1 16:45 Initial lab(s) drawn, by me, sent to lab. Inserted saline lock: 22 gauge in right bp antecubital area, using aseptic technique. Blood collected. Flushed with 10 mL NS. 16:55 CXR XRAY In Process Unspecified. EDMS 17:15 CT Head Brain wo Cont In Process Unspecified. EDMS 18:02 Attending Physician role handed off by Israel Connor DO ms3 18:02 Boris Reece MD is Attending Physician. ms3 Administered Medications: No medications were administered Outcome: 18:08 Discharge ordered by . sp3 18:44 Patient left the ED. ll1 NIH Stroke Scale - NIH Stroke Score Date: 09/02/2024 Time: 16:32 Total Score = 0 10. Dysarthria (speech clarity - read or repeat words) - 0(Normal) 11. Extinction and Inattention (visual/tactile/auditory/spatial/personal) - 0(No abnormality) 1a. Level of Consciousness (LOC) - 0(Alert) 1b. Level of Consciousness (LOC) (Month \T\ Age) - 0(Both) 1c. LOC Commands (Open \T\ Closes Eyes/Assembler Unit) - 0(Both) 2. Best Gaze (Lateral Gaze Paresis) - 0(Normal) 3. Visual Field Loss - 0(No visual loss) 4. Facial Palsy - 0(Normal) 5a. Left Arm: Motor (10-second hold) - 0(No drift) 5b. Right Arm: Motor (10-second hold) - 0(No drift) 6a. Left Leg: Motor (5-second hold - always test supine) - 0(No drift) 6b. Right Leg: Motor (5-second hold - always test supine) - 0(No drift) 7. Limb Ataxia (finger/nose \T\ heel/lopes - test with eyes open) - 0(Absent) 8. Sensory Loss (pinprick arms/legs/face) - 0(Normal) 9. Best Language: Aphasia (description/naming/reading) - 0(No aphasia) Initials: ms3 Signatures: Dispatcher [employer] Sabrina Salinas RN RN iw Placido Sales RN RN bp Grey Walker RN RN ll1 Israel Connor DO DO ms3 Boris Reece MD MD sp3 Valencia Valdivia Corrections: (The following items were deleted from the chart) 16:22 16:19 BP 139 / 85; Pulse 84bpm; Resp 16bpm; Pulse Ox 99% RA; iw iw
[2024-09-02 19:12] VITALS: BP 139/85; O2SAT 99
--- NOTE | 2024-09-06 12:10 | EKG ---
Test Date: 2024-09-02 Test Time: 17:03:35 Lottery Office Manager: YURI MEASUREMENT RESULTS: Intervals: Rate: 76 WA: 136 QRSD: 88 QT: 376 QTc: 423 [place]: P: 56 WA: 136 QRS: 30 T: 49 INTERPRETIVE STATEMENTS: Normal sinus rhythm with sinus arrhythmia Normal ECG No previous ECG available for comparison Electronically Signed On 09-06-24 12:07:47 CDT by Percy Schaeffer
== END 2024-09-02 18:44 | disposition home or self-care (01) ==
LOC: ER 16:11
DX: G44.89 Other headache syndrome (principal); R53.1 Weakness
CPT/HCPCS: 36415; 70450; 71045; 80048; 84484; 85025; 85610; 85730; 93005; 99283